=== PATIENT | female | born 1970 | race African-American/Black ===

== ENCOUNTER 2023-05-01 04:13 | Emergency (ER) | payer MEDICARE, MEDICAID ==
[~2023-05-01] VITALS: Ht 160 cm; Wt 56.0 kg
[2023-05-01] MEDS ORDERED: IPRATROPIUM BROMIDE (0.02%) 0.5MG/2.5ML NEB HHN STA (04:40)
[2023-05-01] MEDS ORDERED: METHYLPREDNISOLONE SOD SUCC 125MG/2ML (ACT-O-VIAL) IV STA (04:40)
[2023-05-01] MEDS ORDERED: ALBUTEROL (0.083%) 2.5MG/3ML NEB HHN STA (04:40)
[2023-05-01] MEDS ORDERED: MAGNESIUM 2 G PREMIX 50 ML IV ONE (04:45)
[2023-05-01 04:51] VITALS: PULSE 66; RESP 22; O2SAT 93
[2023-05-01 05:04] LABS: HEMATOCRIT. 40.7 % (36.0-48.0); HEMOGLOBIN. 13.6 g/dL (12.0-16.0); MEAN CORPUSCULAR HEMOGLOBIN 33.1 pg (28.0-32.0); MEAN CORPUSCULAR HGB CONC 33.3 g/dL (31.0-37.0); MEAN CORPUSCULAR VOLUME 99.5 fL (81.0-99.0); MEAN PLATELET VOLUME 7.5 fl (7.4-10.4); PLATELET 168 x1000/uL (130-400); RED BLOOD CELL COUNT 4.09 mill/uL (4.2-5.4); RED CELL DISTRIBUTION WIDTH 13.1 % (11.6-14.6); WHITE BLOOD COUNT 5.6 x1000/uL (4.5-11.0)
[2023-05-01 05:12] LABS: CHLORIDE 108 mEq/L (98-107); INDEX HEMOLYSI 1 (1-3); INDEX ICTERIC 1 (1-4); INDEX LIPEMIC 1 (1-3); POTASSIUM 3.4 mEq/L (3.5-5.1); SODIUM 140 mEq/L (136-145)
[2023-05-01 05:15] LABS: PARTIAL THROMBOPLASTIN TIME 27.1 sec (23.4-31.0); PROTHROMBIN TIME 10.7 sec (9.6-11.0)
[2023-05-01 05:20] LABS: ALANINE AMINOTRANSFERASE 16 IU/L (13-61); ALBUMIN 3.5 g/dL (3.4-5.0); ASPARTATE AMINOTRANSFERASE 18 IU/L (15-37); BILIRUBIN TOTAL 0.4 mg/dL (0.1-1.0); CALCIUM 8.5 mg/dL (8.5-10.1); CARBON DIOXIDE 30 mEq/L (21-32); CREATININE 0.8 mg/dL (0.6-1.3); GLUCOSE 216 mg/dL (70-105); HCG SCREEN NEGATIVE; NT PRO B-TYPE NATRIURETIC PEP 196 pg/mL (5-125); PROTEIN TOTAL 7.8 g/dL (6.0-8.3); TROPONIN I HIGH SENSITIVITY 12 ng/L (<54); UREA NITROGEN BLOOD 10 mg/dL (7-21)
[2023-05-01 05:21] LABS: DIFFERENTIAL COMMENT 1
[2023-05-01 06:10] LABS: PLATELET ESTIMATE NORMAL
[2023-05-01] MEDS ORDERED: ALBU6.7H3 INH (06:52)
[2023-05-01] MEDS ORDERED: P50 MT (06:52)
[2023-05-01 07:00] VITALS: BP 110/71; PULSE 94; RESP 18; TEMP 98.7
== END 2023-05-01 07:00 | disposition home or self-care (01) ==
LOC: ER 04:13
DX: J44.9 Chronic obstructive pulmonary disease, unspecified (principal); Z86.59 Personal history of other mental and behavioral disorders
CPT/HCPCS: 99285; 96365; 71045; 96375; 80053; 84703; 83880; 85025; 85610; 85730; 84484; 36415; 94640; 93005; J3475; J2930